=== PATIENT | male | born 1965 | race African-American/Black ===

== ENCOUNTER 2017-12-06 15:12 | Emergency (ER) | payer OTHER, BC ==
[~2017-12-06] VITALS: Ht 180.3 cm; Wt 125.0 kg
[2017-12-06 15:26] VITALS: BP 115/64; PULSE 74; RESP 14; TEMP 97.8; O2SAT 98
== END 2017-12-06 17:39 | disposition left against medical advice (07) ==
LOC: NED 15:12
DX: Z04.1 Encounter for examination and observation following transport accident (principal)
CPT/HCPCS: 99281